=== PATIENT | male | born 1985 | race Caucasian/White ===

== ENCOUNTER 2022-08-15 20:00 | Outpatient (CLI) | payer BC, SELFPAY | END 2022-08-15 20:01 | disposition home or self-care (01) | LOC: SLEEP 08-16 04:53 | PROVIDERS: Visit Provider Internal Medicine | DX: G47.33 Obstructive sleep apnea (adult) (pediatric) (principal); R53.82 Chronic fatigue, unspecified; R06.83 Snoring | CPT/HCPCS: 95810 ==

== ENCOUNTER 2024-04-30 09:24 | Outpatient (CLI) | payer BC, SELFPAY ==
[2024-04-30 09:54] LABS: Sperm Present Sperm Not Present
== END 2024-04-30 09:25 | disposition home or self-care (01) ==
PROVIDERS: PCP Internal Medicine; Visit Provider Urology
DX: Z98.52 Vasectomy status (principal)
CPT/HCPCS: 89310